=== PATIENT | female | born 1985 | race Two or more races ===

== ENCOUNTER → 2017-06-11 07:43 | Day surgery (SDC) | payer OTHER ==
[~2017-06-11 07:43] MED LIST: Atracurium* 10 MG/ML 10 ML VIAL ONE; Buffered Lidocaine 0.9% SYRIN* 5 ML/SYR SYRINGE INTRADERM ONE; Buffered Lidocaine 0.9% SYRIN* 5 ML/SYR SYRINGE ONE; DiMENhydriNATE IV* 50 MG/ML VIAL IV PUSH PRN; Famotidine IV* 10 MG/ML 2 ML (20 mg) IV ONE; Famotidine IV* 10 MG/ML 2 ML (20 mg) ONE; KETAMINE HCL* 50 MG/ML 10 ML VIAL ONE; Midazolam* 1 MG/ML 10 ML VIAL (10 MG) ONE; Morphine INJ* 2 MG/ML 1 ML CARPUJECT IV PRN; PROCHLORPERAZINE INJ 5 MG/ML 2 ML VIAL IV PRN; Scopolamine 1.5 mg* PATCH TRANSDERM PRN; Scopolamine PATCH Remove* 1 NOTE MISC PATCH OFF ONE; ceFAZolin 2 GM PREMIX (*) 2 GM/50 ML BAG IVPB ONE; fentaNYL* 50 MCG/ML 2 ML VIAL (100 MCG VIAL) IV PRN; fentaNYL* 50 MCG/ML 2 ML VIAL (100 MCG VIAL) ONE; oxyCODONE/Acetamin 5/325 MG* TAB PO PRN
[2017-06-11 08:22] VITALS: BP 125/62
--- NOTE | 2017-06-11 08:27 | PN ---
Progress Note - Progress Note Date of Service: 06/11/17 Note: Ms. Titus presented to Same Day Surgery reporting that she feels ill and is coughing. Vital Signs 06/11/17 08:02 Temperature 98.8 F Pulse Rate 81 Respiratory 16 Rate Blood Pressure 125/62 (mmHg) O2 Sat by Pulse 98 Oximetry Exam shows that she has enlarged tonsils, lungs have slightly diminished BS bilaterally, and she appears ill. Will cancel surgery for today and try to reschedule next week. Moiz
== END | disposition home or self-care (01) ==
LOC: OR 07:43
PROVIDERS: ATTEND Surgery
DX: K82.4 Cholesterolosis of gallbladder (principal); Z53.09 Procedure and treatment not carried out because of other contraindication; R05 Cough; J35.1 Hypertrophy of tonsils
CPT/HCPCS: 81025; J0690; J2250; J3010

== ENCOUNTER 2017-06-18 07:52 | Inpatient (IN) | payer OTHER ==
[~2017-06-18 07:52] MED LIST changes: +Acetaminophen TAB* 325 MG PO ONE; -Atracurium* 10 MG/ML 10 ML VIAL ONE; -Buffered Lidocaine 0.9% SYRIN* 5 ML/SYR SYRINGE ONE; +Dexamethasone IV* 4 MG/ML 1 ML (4 MG) IV SLOW PU ONE; -DiMENhydriNATE IV* 50 MG/ML VIAL IV PUSH PRN; -Famotidine IV* 10 MG/ML 2 ML (20 mg) ONE; -KETAMINE HCL* 50 MG/ML 10 ML VIAL ONE; -Midazolam* 1 MG/ML 10 ML VIAL (10 MG) ONE; -Morphine INJ* 2 MG/ML 1 ML CARPUJECT IV PRN; -PROCHLORPERAZINE INJ 5 MG/ML 2 ML VIAL IV PRN; -Scopolamine 1.5 mg* PATCH TRANSDERM PRN; -Scopolamine PATCH Remove* 1 NOTE MISC PATCH OFF ONE; -ceFAZolin 2 GM PREMIX (*) 2 GM/50 ML BAG IVPB ONE; -fentaNYL* 50 MCG/ML 2 ML VIAL (100 MCG VIAL) IV PRN; -fentaNYL* 50 MCG/ML 2 ML VIAL (100 MCG VIAL) ONE; -oxyCODONE/Acetamin 5/325 MG* TAB PO PRN
[2017-06-18] MEDS ORDERED: Acetaminophen TAB* 325 MG ONE (08:07)
[2017-06-18] MEDS ORDERED: Dexamethasone IV* 4 MG/ML 1 ML (4 MG) ONE (08:07)
[2017-06-18] MEDS ORDERED: Famotidine IV* 10 MG/ML 2 ML (20 mg) ONE (08:07)
[2017-06-18] MEDS ORDERED: ceFAZolin 2 GM PREMIX (*) 2 GM/50 ML BAG IVPB ONE ×2 (08:08→16:13)
[2017-06-18] MEDS ORDERED: Buffered Lidocaine 0.9% SYRIN* 5 ML/SYR SYRINGE ONE (08:08)
[2017-06-18] MEDS ORDERED: Propofol* 10 MG/ML 20 ML BTL IV PUSH ONE ×2 (08:13→17:16)
[2017-06-18] MEDS ORDERED: Midazolam* 1 MG/ML 2 ML VIAL (2 MG) ONE ×2 (08:13→16:04)
[2017-06-18] MEDS ORDERED: fentaNYL* 50 MCG/ML 2 ML VIAL (100 MCG VIAL) ONE ×5 (08:13→16:21)
[2017-06-18] MEDS ORDERED: Lidocaine 2% PF * 5 ML VIAL ONE (08:13)
[2017-06-18] MEDS ORDERED: Rocuronium* 10 MG/ML VIAL ONE (08:14)
[2017-06-18] MEDS ORDERED: Bupivacaine 0.5% SDV PF* 10-30ML VIAL ONE (08:16)
[2017-06-18] MEDS ORDERED: Bupivacaine 0.25% SDV* 30 ML ONE ×2 (10:09→16:04)
[2017-06-18] MEDS ORDERED: Ondansetron INJ* 2 MG/ML VIAL ONE (10:18)
[2017-06-18] MEDS ORDERED: Ketorolac INJ* 30 MG/ML 1 ML VIAL ONE (10:18)
[2017-06-18] MEDS ORDERED: HYDROmorphone INJ* 1 MG/ML CARPUJECT SYRINGE IV PRN (10:24)
[2017-06-18] MEDS ORDERED: Levalbuterol 0.63MG/3ML NEB* UNIT OF USE INH PRN (10:24)
[2017-06-18] MEDS ORDERED: Glycopyrrolate IV* 0.2 MG/ML 1 ML VIAL ONE ×3 (10:24→17:20)
[2017-06-18] MEDS ORDERED: PROCHLORPERAZINE INJ 5 MG/ML 2 ML VIAL IV PRN (10:24)
[2017-06-18] MEDS ORDERED: DiMENhydriNATE IV* 50 MG/ML VIAL IV PUSH PRN (10:24)
[2017-06-18] MEDS ORDERED: Ibuprofen TAB* 600 MG PO PRN (10:24)
[2017-06-18] MEDS ORDERED: Neostigmine Methylsulfate* 2 MG/2 ML SYRINGE ONE ×3 (10:24→17:20)
[2017-06-18] MEDS ORDERED: HYDROcodone/ACETAMIN 5-325 MG* 1 TAB PO PRN (10:24)
[2017-06-18] MEDS ORDERED: Ondansetron INJ* 2 MG/ML VIAL IV PRN (10:24)
[2017-06-18] MEDS ORDERED: Sugammadex * 200 MG/2 ML VIAL IV PUSH ONE (10:54)
[2017-06-18] MEDS ORDERED: Sugammadex * 500 MG/5 ML VIAL IV PUSH ONE (10:54)
[2017-06-18] MEDS: fentaNYL* 50 MCG/ML 2 ML VIAL (100 MCG VIAL) IV PRN ×6 (11:15→12:04)
[2017-06-18] MEDS ORDERED: Levalbuterol 0.63MG/3ML NEB* UNIT OF USE INH ONE (11:16)
[2017-06-18] MEDS ORDERED: HYDROmorphone INJ* 1 MG/ML CARPUJECT SYRINGE ONE ×2 (11:26→17:16)
[2017-06-18] MEDS ORDERED: oxyCODONE/Acetamin 5/325 MG* TAB ONE ×2 (12:00→12:41)
[2017-06-18] MEDS: oxyCODONE/Acetamin 5/325 MG* TAB PO PRN ×2 (12:01→12:43)
[2017-06-18] MEDS ORDERED: oxyCODONE TAB* 5 MG TAB ONE ×2 (12:58→13:26)
[2017-06-18] MEDS: oxyCODONE TAB* 5 MG TAB PO PRN ×2 (12:59→13:27)
[2017-06-18] MEDS ORDERED: EPHEDrine (Pressors)* 50 MG/ML VIAL ONE ×2 (13:51→17:16)
[2017-06-18] MEDS ORDERED: Naloxone* 0.4 MG/ML 1 ML VIAL ONE (13:53)
[2017-06-18] MEDS ORDERED: Hetastarch in NS* 500 ML IV ONE (15:59)
[2017-06-18] MEDS ORDERED: Atracurium* 10 MG/ML 10 ML VIAL ONE (16:04)
[2017-06-18] MEDS ORDERED: KETAMINE HCL* 50 MG/ML 10 ML VIAL ONE (16:04)
[2017-06-18 16:16] LABS: Hematocrit 32 % (35-47); Hemoglobin 11.1 g/dl (12.0-16.0); Mean Corpuscular HGB Conc 34 g/dl (31-36); Mean Corpuscular Hemoglobin 29 pg (27-31); Mean Corpuscular Volume 85 fL (80-97); Mean Platelet Volume 8 um3 (7.4-10.4); Platelet Count 335 10^3/ul (150-450); Red Blood Count 3.82 10^6/ul (4.0-5.4); Red Cell Distribution Width 13 % (10.5-15); White Blood Count 15.5 10^3/ul (3.5-10.8)
--- NOTE | 2017-06-18 16:19 | RAD ---
INDICATION: Short of breath COMPARISON: January 19, 2016 TECHNIQUE: An AP portable view obtained at 1602 hours is submitted. Examination is apical lordotic in positioning FINDINGS: Bones/Soft Tissues: There are no acute bony findings. Cardiomediastinal: The cardiomediastinal silhouette is normal. Lungs: There are no infiltrates. Pleura: There are no pleural effusions. Other: None IMPRESSION: NO ACTIVE DISEASE.
[2017-06-18 16:24] LABS: INR 1.09 (0.77-1.02)
[2017-06-18] MEDS ORDERED: Succinylcholine* 20 MG/ML 10 ML VIAL ONE (17:16)
[2017-06-18 17:20] LABS: Hematocrit 24 % (35-47); Mean Corpuscular HGB Conc 34 g/dl (31-36); Mean Corpuscular Hemoglobin 29 pg (27-31); Mean Corpuscular Volume 87 fL (80-97); Mean Platelet Volume 8 um3 (7.4-10.4); Platelet Count 210 10^3/ul (150-450); Red Blood Count 2.71 10^6/ul (4.0-5.4); Red Cell Distribution Width 13 % (10.5-15); White Blood Count 13.3 10^3/ul (3.5-10.8)
[2017-06-18] MEDS ORDERED: HYDROmorphone INJ* 1 MG/ML CARPUJECT SYRINGE IV SLOW PU PRN ×2 (17:55)
[2017-06-18 18:03] LABS: INR 1.03 (0.77-1.02)
[2017-06-18] MEDS ORDERED: KCL 20 MEQ/100 ML IVPREMIX* 20 MEQ/100 ML BAG IV SCH (19:00)
[2017-06-18] MEDS: KCL premix 10MEQ/50 ML x 3 RUNS IV SCH ×2 (19:45→23:23)
[2017-06-18 21:05] LABS: ABS Basophils 0 10^3/ul (0-0.2); ABS Eosinophils 0 10^3/ul (0-0.6); ABS Lymphocytes 0.5 10^3/ul (1.0-4.8); ABS Monocytes 0.5 10^3/ul (0-0.8); ABS Neutrophils 11.4 10^3/ul (1.5-7.7); ABS Nucleated RBC 0 10^3/ul; Eosinophil % 0 % (0-6); Hematocrit 27 % (35-47); Hemoglobin 8.9 g/dl (12.0-16.0); Lymphocyte % 4.4 % (25-47); Mean Corpuscular HGB Conc 34 g/dl (31-36); Mean Corpuscular Hemoglobin 29 pg (27-31); Mean Corpuscular Volume 87 fL (80-97); Mean Platelet Volume 8 um3 (7.4-10.4); Nucleated Red Blood Cells % 0; Platelet Count 246 10^3/ul (150-450); Red Blood Count 3.07 10^6/ul (4.0-5.4); Red Cell Distribution Width 13 % (10.5-15); White Blood Count 12.4 10^3/ul (3.5-10.8)
--- NOTE | 2017-06-18 21:37 | OP ---
CC: [facility]; Dr. Margaret Stoddard OPERATIVE REPORT: DATE OF OPERATION: 06/18/17 DATE OF : 87 SURGEON: Linda Taylor MD SENIOR PORTFOLIO MANAGER: GERARD Gaines and GERARD Jara student PRE-OP DIAGNOSIS: Cholesterolosis of the gallbladder. POST-OP DIAGNOSIS: Cholesterolosis of the gallbladder. OPERATIVE PROCEDURE: Laparoscopic cholecystectomy INDICATIONS: This is patient is a 31-year-old woman who presented with symptomatic cholesterolosis o f the gallbladder, which prompted the plan for surgical intervention. DESCRIPTION OF PROCEDURE: She was brought to the operating room, placed on the OR table in a supine position and given general anesthesia. The abdomen was prepped and draped in the usual sterile fashi on. After infiltrating with local anesthetic, an incision was made in the infraumbilical area. Subc utaneous tissue was divided bluntly. The fascia was grasped and incised and 0-Vicryl stitch was plac ed on the either side of the fascial incision. A trocar was inserted into the abdomen and the abdome n was insufflated. Then under direct visualization, the subxiphoid and two subcostal ports were plac ed after infiltrating with local anesthetic. The gallbladder was visualized, grasped and elevated ov er the liver. Dissection of the peritoneal attachments over the gallbladder was accomplished with a combination of blunt and electrocautery dissection. This exposed the infundibulum and the cystic jaswant t. The cystic duct was cleared, clipped and divided and then the cystic artery was identified, courtney red, clipped and divided. The gallbladder was then taken down from the liver bed using electrocauter y. It was noted that there was some bleeding from the attachments of the gallbladder to the liver. These were controlled with a combination of electrocautery and clips. Once the gallbladder was compl etely removed from the liver bed, it was placed in an Endo Catch bag and withdrawn from the abdomen t hrough the subxiphoid port site. The rest of the abdomen was briefly inspected. No obvious abnormal ities were identified and then the ports were withdrawn under direct visualization. The previously p laced 0-Vicryl was used to close the fascia of the infraumbilical port site and an additional 0-Vicry l was used to close the fascia of the subxiphoid port site. It should be mentioned that this was act ually accomplished prior to withdrawing the ports under direct visualization using the suture pass. The skin was then closed with 4-0 Biosyn for all incisions. Steri-strips were applied. All sponge a nd instruments counts were correct. The patient tolerated the procedure well and was transferred to recovery in a stable condition. [id number]/CPS #: [id number]
--- NOTE | 2017-06-18 23:28 | CONS ---
CC: Dr. Stoddard; Dr. Taylor * CONSULTATION REPORT: DATE OF CONSULT: 06/18/17 PRIMARY CARE PROVIDER: Dr. Stoddard. ATTENDING PHYSICIAN WHILE IN THE HOSPITAL: Vianney Barboza DO (report dictated by Amanda Kahn NP). REQUESTING PHYSICIAN IN CONSULT: Dr. Taylor. REASON FOR MEDICAL CONSULT: Evaluation of hypertension, bradycardia postoperatively. HISTORY OF PRESENT ILLNESS: Mrs. Titus is a 31-year-old female patient who came into the hospital today for an elective laparoscopic cholecystectomy. She had an extensive outpatient workup and was ultimately found to have a biliary colic on imaging and it was noted that on HIDA scan the patient did have an abnormal HIDA scan and it was felt that she would benefit from a laparoscopic cholecystectomy which she underwent today. The patient underwent the procedure. During the operation, there were no reports of excessive bleeding; however, in PACU, it was noted that she did have episodes where she was bradycardic at times in the 30s to 40s and she was hypotensive with this, particularly with any type of movement. So, we were asked to evaluate and consult. She was evaluated in the PACU. Initially, she states that her biggest complaint is that she is having pain in the right upper quadrant going into her back and also having some pain in her epigastric area and she points right to one of her incisions at that area. She denied having any lightheadedness to me initially and denied like she was going to faint or pass out. She denied having any shortness of breath or any chest discomfort. She states that again her biggest complaint is the pain. She denied having any nausea. She states she has not vomited. It was noted that my nursing staff that whenever they tried to move her, she was getting again a low blood pressure and was also noted to be bradycardic. Because of these issues and increased pain, we were asked to evaluate and consult. PAST MEDICAL HISTORY: Significant for: 1. Migraines. 2. Seasonal allergies. 3. Insomnia. PAST SURGICAL HISTORY: She has had vaginal delivery. She has had a D and C and then she had a laparoscopic cholecystectomy today. MEDICATIONS: Preop home meds include: 1. Ibuprofen 600 mg p.o. every 6 hours as needed. 2. Tylenol 650 mg p.o. every 4 hours as needed. 3. [place] 1 tablet every 4 hours as needed. ALLERGIES TO MEDICATIONS: Include no known drug allergies. FAMILY HISTORY: Her father had a stroke. Mother's history is reviewed and especially is noncontributory for having any strokes, cancers, or heart attacks. SOCIAL HISTORY: She does not smoke. She does not drink. Her surrogate decision maker is her brother. REVIEW OF SYSTEMS: There is no documented fever. She denied having any significant weight change. There was no double vision. She denies having any ear discharge. There was no rhinorrhea. No sore throat. No thyroid enlargement. She denied having any chest pain. She did admit to abdominal pain from HPI. There was no nausea. There was no vomiting. She denied any dysuria. She denied having any loss of consciousness. No pruritus and no skin ulcerations. Review of 14 systems completed. All others negative. PHYSICAL EXAMINATION: Blood pressure now is 114/64, the pulse is 62, respirations 20, O2 sat of 100%. After I initially evaluated her and I came to sit down on the computer to type in orders, her blood pressure did drop into the 60s and she became bradycardic in the 60s, but she did appear to be more pale according to Anesthesia and the patient was subjectively reporting not feeling well. At that point, she was evaluated by Dr. Taylor and they were actually taking her back to the OR. Generally at this time, she is a 31-year- old female patient. She does appear to be pale. She does not appear to be tachypneic. She does appear to be in a significant amount of pain. She appears to be well nourished, well developed. HEENT: Head is atraumatic. Eyes : EOMs intact. Sclerae anicteric, not pale. Neck: Supple. Throat: Oral mucosa appears to be dry. No oropharyngeal erythema. Heart: Sounds S1, S2. Regular rate and rhythm. She has no murmurs, rubs, or gallops. Lungs: Clear to auscultation. No wheezes, rales, or rhonchi. Abdomen: Soft, did not appear to be overly distended. She was tender mostly at the incision sites at this point. Extremities: Pulses were 2+ throughout. She is moving all 4 extremities. Neurologically, she does awaken, she is alert, and she is oriented x3. Her skin is intact with the exception she does have incisions noted to her abdomen which were clean, dry, and intact. LABORATORY DATA/DIAGNOSTIC STUDIES: Labs preop, these are from January, WBC 5.2, RBC 4.49, hemoglobin 12.8, hematocrit 39, platelet count of 301. INR 1.16. Sodium is 138, potassium 3.7, chloride 105, bicarb 28, BUN 13, creatinine of 0.72, and her glucose was 132. She had an EKG obtained today, which showed sinus bradycardia, rate of 57, no ST elevations or T wave inversions. She did have a chest x-ray obtained that is pending. Old medical records were reviewed. ASSESSMENT AND PLAN: Mrs. Titus is a 31-year-old female patient that again we initially were asked to evaluate for bradycardia and hypotension. On initial evaluation, her blood pressure was in the one-teens and her heart rate was in the 70s. She was complaining of pain; however, it was noted shortly thereafter that she did drop her blood pressure again into the 60s systolic. She appeared to be more pale. She was still complaining subjectively of feeling flushed and feeling faint. Dr. Taylor was brought to the bedside as well as Dr. Zaman who felt that at this point that she would come back to the OR to make sure there was not any other pathology going on that could be contributing to her symptoms. CBC ordered at this point and BMP, type and screen and an INR. My recommendations at this point are: 1. Status post laparoscopic cholecystectomy: We will defer the management of this to Dr. Taylor and her team. 2. Hypotension with bradycardia: Again, initially I was concerned that she was vasovagal; however, there may be an underlying bigger process going on here. She certainly may have evidence of possible bleeding that could be contributing to her symptoms. The plan would be to take her back. We will check the CBC, ICU postoperatively, monitor her closely, fluids we will get 2 lines, type and screen and follow labs closely. 3. Migraines: Not an active issue currently. 4. Seasonal allergies: Continue meds as prescribed. 5. Insomnia: Continue supportive care. 5. DVT prophylaxis: Per the primary team. 6. Code status: Full code. 7. Fluid, electrolytes, and nutrition: Per the primary team. 8. Activity: Per the primary team. TIME SPENT: Time spent on the consult was 70 minutes, greater than half the time was spent [id number] with the patient obtaining history and physical, the other half time was spent going over our plan of care with the patient and implementing plan of care. I did discuss the plan of care with my attending, Dr. Barboza; she is in agreement. AMANDA KAHN, ECONOMICS INSTRUCTOR [id number]/CPS #: [id number] JUDY
[2017-06-18] MEDS: Acetaminophen TAB* 325 MG PO PRN (23:40)
[2017-06-18] MEDS: Ondansetron INJ* 2 MG/ML VIAL IV PRN (23:40)
--- NOTE | 2017-06-19 02:25 | OP ---
CC: [facility]; Dr. Margaret Stoddard OPERATIVE REPORT: DATE OF OPERATION: 06/18/17 DATE OF : 87 SURGEON: Linda Taylor MD LOGISTICS OPERATIONS MANAGER: GERARD Quan and PA student, Marek. PRE-OP DIAGNOSIS: Hemodynamic instability. POST-OP DIAGNOSIS: Intraabdominal hematoma. OPERATIVE PROCEDURE: Laparoscopy and evacuation of hematoma. INDICATIONS: Ms. Titus is a 31-year-old female, who was recently status post laparoscopic cholecystecto my and while in recovery room, she was noted to have some decreased blood pressure and increased pain . In the process of evaluating this, medicine was called to consult and while they were consulting, she dropped her pressure even further. At this point, I was called and noted that she was rather pal e, made the decision to return to the operating room. DESCRIPTION OF PROCEDURE: She was brought to the operating room, placed on the OR table in a supine position and given general anesthesia. The abdomen was prepped and draped in the usual sterile fashi on. After infiltrating with local anesthetic, a scalpel was used to cut the stitches from the previo us incision at the infraumbilical site and a trocar was inserted. The abdomen was insufflated and th en under direct visualization, the incisions at the subxiphoid and two right subcostal port sites wer e opened and ports were inserted under direct visualization after infiltrating with local anesthetic. There was noted severe moderate amount of hematoma in the region of the liver bed and some liquid b lood and fluid over the liver and moderate hematoma on the anterior surface of the bowel. The abdome n was irrigated with saline and the irrigation and the clots were evacuated and then copious irrigati on was utilized to try and localize any bleeding source. The gallbladder fossa was inspected and the re was no active bleeding observed from there. There did not appear to be any bleeding from cystic a rtery and no leakage of blood from any other source that could be identified. The abdomen was copiou sly irrigated with fluid and all the irrigation fluid was evacuated and this was repeated until it ap peared that the irrigation fluid was running fairly clear and that the blood had been washed out from all surfaces where it could be visualized including in the pelvis and over the right side of the meri er. The abdomen was observed very carefully for ongoing bleeding and then was visualized. A piece o f Surgicel was placed in the gallbladder fossa and the ports were withdrawn under direct visualizatio n. A 0 Vicryl was used to close the fascia of the infraumbilical port site and 4-0 Monocryl was used to close the skin of all incisions. Steri-Strips were applied. All sponge and instruments counts w ere correct. The patient tolerated the procedure well and was transferred to Recovery in a stable co ndition. [id number] #: [id number]
[2017-06-19 02:46] LABS: Hematocrit 24 % (35-47); Hemoglobin 8.2 g/dl (12.0-16.0)
[2017-06-19] MEDS: KCL premix 10MEQ/50 ML x 3 RUNS IV SCH (03:06)
[2017-06-19] MEDS: oxyCODONE/Acetamin 5/325 MG* TAB PO PRN ×3 (03:44→23:17)
[2017-06-19] MEDS ORDERED: KCL premix 10MEQ/50 ML x 1 TIME IV ONE (04:00)
[2017-06-19 06:13] LABS: ABS Basophils 0.1 10^3/ul (0-0.2); ABS Eosinophils 0 10^3/ul (0-0.6); ABS Lymphocytes 1.4 10^3/ul (1.0-4.8); ABS Monocytes 0.6 10^3/ul (0-0.8); ABS Neutrophils 6.2 10^3/ul (1.5-7.7); ABS Nucleated RBC 0.05 10^3/ul; Eosinophil % 0.1 % (0-6); Hematocrit 23 % (35-47); Hemoglobin 7.9 g/dl (12.0-16.0); Lymphocyte % 17.1 % (25-47); Mean Corpuscular HGB Conc 35 g/dl (31-36); Mean Corpuscular Hemoglobin 30 pg (27-31); Mean Corpuscular Volume 86 fL (80-97); Mean Platelet Volume 8 um3 (7.4-10.4); Nucleated Red Blood Cells % 0.6; Platelet Count 231 10^3/ul (150-450); Red Blood Count 2.64 10^6/ul (4.0-5.4); Red Cell Distribution Width 13 % (10.5-15); White Blood Count 8.3 10^3/ul (3.5-10.8)
[2017-06-19 06:22] LABS: EGFR Non-African American 151.9 (>60)
--- NOTE | 2017-06-19 07:43 | PN ---
Progress Note - Progress Note Date of Service: 06/19/17 Note: Surgery Ms. Titus says she feels better than before her return to OR yesterday. She does have some nausea, but wants to get up and walk today. Vital Signs 06/18/17 06/18/17 06/18/17 08:16 11:15 11:20 Temperature 98.4 F 98.1 F Pulse Rate 66 68 Respiratory 16 16 16 Rate Blood Pressure 106/65 134/78 (mmHg) O2 Sat by Pulse 99 100 Oximetry 06/18/17 06/18/17 06/18/17 11:23 11:25 11:30 Temperature Pulse Rate 64 68 Respiratory 14 18 16 Rate Blood Pressure 110/92 (mmHg) O2 Sat by Pulse 100 100 Oximetry 06/18/17 06/18/17 06/18/17 11:34 11:35 11:38 Temperature Pulse Rate 67 Respiratory 14 16 16 Rate Blood Pressure 124/81 (mmHg) O2 Sat by Pulse 100 Oximetry 06/18/17 06/18/17 06/18/17 11:45 12:00 12:01 Temperature Pulse Rate 65 57 Respiratory 16 16 17 Rate Blood Pressure 114/75 98/55 (mmHg) O2 Sat by Pulse 99 100 Oximetry 06/18/17 06/18/17 06/18/17 12:04 12:15 12:30 Temperature 98.2 F Pulse Rate 60 64 Respiratory 17 18 11 Rate Blood Pressure 114/68 106/64 (mmHg) O2 Sat by Pulse 100 100 Oximetry 06/18/17 06/18/17 06/18/17 12:43 12:45 13:50 Temperature Pulse Rate 58 41 Respiratory 18 19 20 Rate Blood Pressure 108/60 (mmHg) O2 Sat by Pulse 100 Oximetry 06/18/17 06/18/17 06/18/17 14:15 14:30 14:45 Temperature 98.1 F Pulse Rate 62 61 63 Respiratory 20 20 17 Rate Blood Pressure 114/64 114/64 112/62 (mmHg) O2 Sat by Pulse 100 100 100 Oximetry 06/18/17 06/18/17 06/18/17 15:00 15:15 15:30 Temperature Pulse Rate 65 63 71 Respiratory 23 16 24 Rate Blood Pressure 100/63 98/56 104/66 (mmHg) O2 Sat by Pulse 100 99 99 Oximetry 06/18/17 06/18/17 06/18/17 15:45 15:48 15:55 Temperature Pulse Rate 68 59 59 Respiratory 19 20 20 Rate Blood Pressure 68/32 88/52 (mmHg) O2 Sat by Pulse 100 100 100 Oximetry 06/18/17 06/18/17 06/18/17 16:00 16:15 17:38 Temperature 97.7 F Pulse Rate 60 67 130 Respiratory 24 22 18 Rate Blood Pressure 118/69 120/70 117/65 (mmHg) O2 Sat by Pulse 100 100 100 Oximetry 06/18/17 06/18/17 06/18/17 18:29 18:31 18:32 Temperature 99.6 F Pulse Rate 64 63 Respiratory 25 15 16 Rate Blood Pressure 110/74 110/74 (mmHg) O2 Sat by Pulse 99 99 Oximetry 06/18/17 06/18/17 06/18/17 18:45 19:00 19:15 Temperature Pulse Rate 62 60 61 Respiratory 15 15 16 Rate Blood Pressure 105/71 109/73 109/73 (mmHg) O2 Sat by Pulse 100 100 100 Oximetry 06/18/17 06/18/17 06/18/17 19:30 19:45 20:00 Temperature 99.6 F Pulse Rate 60 60 78 Respiratory 17 18 24 Rate Blood Pressure 106/71 110/67 124/84 (mmHg) O2 Sat by Pulse 100 100 100 Oximetry 06/18/17 06/18/17 06/18/17 20:15 20:30 21:00 Temperature Pulse Rate 64 64 60 Respiratory 20 24 16 Rate Blood Pressure 105/66 111/66 105/64 (mmHg) O2 Sat by Pulse 100 100 100 Oximetry 06/18/17 06/18/17 06/18/17 21:15 21:30 21:45 Temperature Pulse Rate 68 67 66 Respiratory 18 15 17 Rate Blood Pressure 101/65 99/63 97/57 (mmHg) O2 Sat by Pulse 95 94 95 Oximetry 06/18/17 06/18/17 06/18/17 22:00 22:15 22:30 Temperature Pulse Rate 73 65 70 Respiratory 13 15 15 Rate Blood Pressure 94/54 93/55 94/58 (mmHg) O2 Sat by Pulse 94 95 95 Oximetry 06/18/17 06/18/17 06/18/17 22:45 23:00 23:15 Temperature Pulse Rate 68 69 80 Respiratory 12 16 23 Rate Blood Pressure 98/56 90/52 93/57 (mmHg) O2 Sat by Pulse 95 96 98 Oximetry 06/18/17 06/19/17 06/19/17 23:58 00:00 00:01 Temperature 99.6 F Pulse Rate 69 Respiratory 18 18 Rate Blood Pressure 99/62 (mmHg) O2 Sat by Pulse 95 Oximetry 06/19/17 06/19/17 06/19/17 00:02 00:50 01:00 Temperature Pulse Rate 65 76 69 Respiratory 19 15 18 Rate Blood Pressure 91/54 93/54 (mmHg) O2 Sat by Pulse 96 95 92 Oximetry 06/19/17 06/19/17 06/19/17 01:01 02:00 02:01 Temperature Pulse Rate 72 70 68 Respiratory 14 23 16 Rate Blood Pressure 92/55 (mmHg) O2 Sat by Pulse 95 94 96 Oximetry 06/19/17 06/19/17 06/19/17 02:25 03:00 03:44 Temperature Pulse Rate 69 65 Respiratory 19 17 26 Rate Blood Pressure 91/54 88/58 (mmHg) O2 Sat by Pulse 96 96 Oximetry 06/19/17 06/19/17 06/19/17 04:00 05:00 05:41 Temperature Pulse Rate 68 66 71 Respiratory 21 16 15 Rate Blood Pressure 90/57 85/53 86/50 (mmHg) O2 Sat by Pulse 96 94 95 Oximetry 06/19/17 06:00 Temperature Pulse Rate 65 Respiratory 18 Rate Blood Pressure 92/60 (mmHg) O2 Sat by Pulse 97 Oximetry Abd: distended, good BS, mildly tender near incisions. Intake & Output Intake & Output 06/18/17 06/19/17 06/19/17 22:59 06:59 14:59 Intake Total 5850 391 Output Total 4200 400 Balance 1650 -9 Weight 154 lb 5.177 oz 146 lb 13.246 oz Intake: IV Fluids 5800 87 LR 5800 37 IVPB 50 254 LR 50 254 Oral 50 Output: [place] 3200 400 Estimated Blood Loss 1000 Laboratory Results - last 24 hr 06/18/17 06/18/17 06/18/17 15:48 15:48 15:48 WBC 15.5 H RBC 3.82 L Hgb 11.1 L Hct 32 L MCV 85 MCH 29 MCHC 34 RDW 13 Plt Count 335 MPV 8 Neut % (Auto) Lymph % (Auto) Gregg % (Auto) Eos % (Auto) Baso % (Auto) Absolute Neuts (auto) Absolute Lymphs (auto) Absolute Monos (auto) Absolute Eos (auto) Absolute Basos (auto) Absolute Nucleated RBC Nucleated RBC % INR (Anticoag Therapy) 1.09 H APTT Sodium 136 Potassium 3.3 L Chloride 104 Carbon Dioxide 24 Anion Gap 8 BUN 8 Creatinine 0.64 Est GFR ( Amer) 140.1 Est GFR (Non-Af Amer) 109.0 BUN/Creatinine Ratio 12.5 Glucose 142 H Calcium 8.5 L Total Bilirubin 0.30 AST 35 ALT 22 Alkaline Phosphatase 43 Total Protein 6.6 Albumin 3.4 Globulin 3.2 Albumin/Globulin Ratio 1.1 Blood Type Antibody Screen 06/18/17 06/18/17 06/18/17 16:05 17:09 17:09 WBC 13.3 H RBC 2.71 L Hgb 8.0 L Hct 24 L MCV 87 MCH 29 MCHC 34 RDW 13 Plt Count 210 MPV 8 Neut % (Auto) Lymph % (Auto) Gregg % (Auto) Eos % (Auto) Baso % (Auto) Absolute Neuts (auto) Absolute Lymphs (auto) Absolute Monos (auto) Absolute Eos (auto) Absolute Basos (auto) Absolute Nucleated RBC Nucleated RBC % INR (Anticoag Therapy) 1.03 H APTT 38.2 H Sodium Potassium Chloride Carbon Dioxide Anion Gap BUN Creatinine Est GFR ( Amer) Est GFR (Non-Af Amer) BUN/Creatinine Ratio Glucose Calcium Total Bilirubin AST ALT Alkaline Phosphatase Total Protein Albumin Globulin Albumin/Globulin Ratio Blood Type B Positive Antibody Screen Negative 06/18/17 06/19/17 06/19/17 20:50 02:40 05:56 WBC 12.4 H RBC 3.07 L Hgb 8.9 L 8.2 L Hct 27 L 24 L MCV 87 MCH 29 MCHC 34 RDW 13 Plt Count 246 MPV 8 Neut % (Auto) 91.5 H Lymph % (Auto) 4.4 L Gregg % (Auto) 3.8 Eos % (Auto) 0 Baso % (Auto) 0.3 Absolute Neuts (auto) 11.4 H Absolute Lymphs (auto) 0.5 L Absolute Monos (auto) 0.5 Absolute Eos (auto) 0 Absolute Basos (auto) 0 Absolute Nucleated RBC 0 Nucleated RBC % 0 INR (Anticoag Therapy) APTT Sodium 135 Potassium 3.6 Chloride 106 Carbon Dioxide 25 Anion Gap 4 BUN 6 Creatinine 0.48 L Est GFR ( Amer) 195.3 Est GFR (Non-Af Amer) 151.9 BUN/Creatinine Ratio 12.5 Glucose 86 Calcium 7.6 L Total Bilirubin AST ALT Alkaline Phosphatase Total Protein Albumin Globulin Albumin/Globulin Ratio Blood Type Antibody Screen 06/19/17 05:56 WBC 8.3 RBC 2.64 L Hgb 7.9 L Hct 23 L MCV 86 MCH 30 MCHC 35 RDW 13 Plt Count 231 MPV 8 Neut % (Auto) 75.2 Lymph % (Auto) 17.1 L Gregg % (Auto) 6.8 Eos % (Auto) 0.1 Baso % (Auto) 0.8 Absolute Neuts (auto) 6.2 Absolute Lymphs (auto) 1.4 Absolute Monos (auto) 0.6 Absolute Eos (auto) 0 Absolute Basos (auto) 0.1 Absolute Nucleated RBC 0.05 Nucleated RBC % 0.6 INR (Anticoag Therapy) APTT Sodium Potassium Chloride Carbon Dioxide Anion Gap BUN Creatinine Est GFR ( Amer) Est GFR (Non-Af Amer) BUN/Creatinine Ratio Glucose Calcium Total Bilirubin AST ALT Alkaline Phosphatase Total Protein Albumin Globulin Albumin/Globulin Ratio Blood Type Antibody Screen A/P: POD#1 s/p lap choley and then return to OR for bleeding. She has been a little hypotensive while sleeping, Hgb is low at 7.9, but relatively stable since OR; will continue to check labs and monitor BP. Will have low threshold for return to OR for further drops in Hgb or persistent low BP. [facility]
[2017-06-19 08:05] LABS: INR 1.27 (0.77-1.02)
--- NOTE | 2017-06-19 09:58 | PN ---
Subjective Date of Service: 06/19/17 Interval History: pt c/o diffuse post op abd pain, no flatus or BM yet. tolerating clears Objective Active Medications: Acetaminophen (Tylenol Tab*) 650 mg PO Q4H PRN PRN Reason: mild pain Last Admin: 06/18/17 23:40 Dose: 650 mg Hydromorphone HCl (Dilaudid Injic*) 0.5 mg IV SLOW PU Q4H PRN PRN Reason: PAIN Hydromorphone HCl (Dilaudid Injic*) 1 mg IV SLOW PU Q4H PRN PRN Reason: more severe pain Lactated Ringer's (Lactated Ringers 1000 Ml Bag*) 1,000 mls @ 100 mls/hr IV PER RATE ABENA Levalbuterol HCl (Xopenex 0.63mg/3ml Neb*) 0.63 mg INH ONCE PRN PRN Reason: SOB/WHEEZING Stop: 06/19/17 10:23 Ondansetron HCl (Zofran Inj*) 4 mg IV Q6H PRN PRN Reason: NAUSEA Last Admin: 06/18/17 23:40 Dose: 4 mg Oxycodone/Acetaminophen (Percocet 5/325 Tab*) 1 tab PO Q4H PRN PRN Reason: moderate pain Last Admin: 06/19/17 03:44 Dose: 1 tab Oxycodone/Acetaminophen (Percocet 5/325 Tab*) 2 tab PO Q4H PRN PRN Reason: moderately severe pain Vital Signs - 8 hr 06/19/17 06/19/17 06/19/17 02:00 02:01 02:25 Temperature Pulse Rate 70 68 69 Respiratory 23 16 19 Rate Blood Pressure 92/55 91/54 (mmHg) O2 Sat by Pulse 94 96 96 Oximetry 06/19/17 06/19/17 06/19/17 03:00 03:44 04:00 Temperature Pulse Rate 65 68 Respiratory 17 26 21 Rate Blood Pressure 88/58 90/57 (mmHg) O2 Sat by Pulse 96 96 Oximetry 06/19/17 06/19/17 06/19/17 05:00 05:41 06:00 Temperature Pulse Rate 66 71 65 Respiratory 16 15 18 Rate Blood Pressure 85/53 86/50 92/60 (mmHg) O2 Sat by Pulse 94 95 97 Oximetry 12/06/19/17 06/19/17 07:00 07:50 08:00 Temperature 99.9 F Pulse Rate 65 66 Respiratory 15 14 Rate Blood Pressure 89/62 80/52 (mmHg) O2 Sat by Pulse 96 95 Oximetry 06/19/17 06/19/17 08:02 09:00 Temperature Pulse Rate 66 65 Respiratory 16 13 Rate Blood Pressure 85/54 94/51 (mmHg) O2 Sat by Pulse 95 96 Oximetry Oxygen Devices in Use Now: None Appearance: 31 yo f in nAD, aAOx3 Eyes: No Scleral Icterus, PERRLA Ears/Nose/Mouth/Throat: NL Teeth, Lips, Gums, Mucous Membranes Moist Neck: NL Appearance and Movements; NL JVP, Trachea Midline Respiratory: Symmetrical Chest Expansion and Respiratory Effort, Clear to Auscultation Cardiovascular: NL Sounds; No Murmurs; No JVD, RRR Abdominal: - - mild diffuse tenderness, no rebound, no guarding, BS+, post op incisions covered with steri-stripa Extremities: No Edema, No Clubbing, Cyanosis Skin: No Nodules or Sclerosis, - - see above Neurological: Alert and Oriented x 3, NL Muscle Strength and Tone Result Diagrams: 06/19/17 05:56 06/19/17 05:56 Microbiology and Other Data: Microbiology 06/18/17 21:16 Nasal Screen MRSA (PCR)(LUIS) - Final Nasal Mrsa Negative 06/18/17 18:20 Nasal Screen MRSA (PCR)(LUIS) - Final Nasal Mrsa Negative Assess/Plan/Problems-Billing Assessment: 31 yo f with h/o HTN presents for laparoscopic cholecystectomy and suffered from post op hemorrhagic shock, [facility] and intraabd hematoma was washed out by Dr. Taylor. - Patient Problems (1) Hemorrhagic shock Comment: resuscitated with IVF. Hb down to 7.9, now hemodynamically stable on clears by surgery (2) Anemia Comment: due to acute intraop hemorrhage H&H will be checked in aM (3) DVT prophylaxis Comment: SCD's
[2017-06-19] MEDS: Ondansetron INJ* 2 MG/ML VIAL IV PRN (16:41)
[2017-06-19] MEDS: Acetaminophen TAB* 325 MG PO PRN (20:18)
[2017-06-19] MEDS: ZOSYN 3.375 GM Q8H per EXTENDED INFUSION IVPB SCH ×2 (21:13)
[2017-06-19 21:32] LABS: ABS Basophils 0 10^3/ul (0-0.2); ABS Eosinophils 0 10^3/ul (0-0.6); ABS Lymphocytes 1.9 10^3/ul (1.0-4.8); ABS Monocytes 0.5 10^3/ul (0-0.8); ABS Nucleated RBC 0 10^3/ul; Eosinophil % 0.5 % (0-6); Hematocrit 27 % (35-47); Hemoglobin 9.1 g/dl (12.0-16.0); Lymphocyte % 22.1 % (25-47); Mean Corpuscular HGB Conc 34 g/dl (31-36); Mean Corpuscular Hemoglobin 30 pg (27-31); Mean Corpuscular Volume 87 fL (80-97); Mean Platelet Volume 8 um3 (7.4-10.4); Nucleated Red Blood Cells % 0; Platelet Count 241 10^3/ul (150-450); Red Blood Count 3.07 10^6/ul (4.0-5.4); Red Cell Distribution Width 13 % (10.5-15); White Blood Count 8.4 10^3/ul (3.5-10.8)
[2017-06-20] MEDS: oxyCODONE/Acetamin 5/325 MG* TAB PO PRN ×5 (03:41→23:42)
[2017-06-20 05:57] LABS: INR 1.33 (0.77-1.02)
[2017-06-20 05:59] LABS: EGFR Non-African American 182.2 (>60)
[2017-06-20] MEDS: ZOSYN 3.375 GM Q8H per EXTENDED INFUSION IVPB SCH ×2 (06:09)
[2017-06-20] MEDS ORDERED: Magnesium Sulfate IV* 3 GM in NS 0.9% 100 ML* 100 ML IVPB ONE (08:44)
[2017-06-20] MEDS ORDERED: KCL 20 MEQ/100 ML IVPREMIX* 20 MEQ/100 ML BAG IV SCH (09:00)
[2017-06-20] MEDS ORDERED: Magnesium Sulfate 1 GM IV* 1 GM/100 ML BAG IV ONE (09:00)
[2017-06-20] MEDS: KCL premix 10MEQ/50 ML x 4 RUNS IV SCH ×4 (09:26→15:50)
[2017-06-20] MEDS ORDERED: Magnesium Sulfate 2 GM IV IVPB ONE (10:00)
--- NOTE | 2017-06-20 10:25 | PN ---
Progress Note - Progress Note Date of Service: 06/20/17 SOAP: Subjective: Reports abdominal pain and Nausea. Wants to drink. Had temp 102 last night and was started on iv abx. Objective: Vital Signs Temp 99.8 F 06/20/17 08:00 Pulse 73 06/20/17 09:00 Resp 16 06/20/17 09:39 BP 101/65 06/20/17 09:00 Pulse Ox 95 06/20/17 09:00 Gen: lying in bed; arousable; NAD. lungs: decr BS at bases, no w/r/r abd: incis c/d/i; no erythema; BS+; soft, ND, tender incisions. Intake & Output 06/19/17 06/20/17 06/20/17 18:59 06:59 18:59 Intake Total 0 616 Output Total 900 Balance 0 -284 Weight 143 lb 1.28 oz Intake: IV Fluids 320 LR 320 IVPB 96 LR 96 Oral 0 200 Output: [place] 900 Laboratory Results - last 24 hr 06/19/17 06/19/17 06/20/17 21:06 21:06 05:28 WBC 8.4 RBC 3.07 L Hgb 9.1 L Hct 27 L MCV 87 MCH 30 MCHC 34 RDW 13 Plt Count 241 MPV 8 Neut % (Auto) 71.2 Lymph % (Auto) 22.1 L Rich % (Auto) 5.9 Eos % (Auto) 0.5 Baso % (Auto) 0.3 Absolute Neuts (auto) 6.0 Absolute Lymphs (auto) 1.9 Absolute Monos (auto) 0.5 Absolute Eos (auto) 0 Absolute Basos (auto) 0 Absolute Nucleated RBC 0 Nucleated RBC % 0 INR (Anticoag Therapy) Sodium 133 Potassium 3.3 L Chloride 103 Carbon Dioxide 19 L Anion Gap 11 BUN 6 Creatinine 0.41 L Est GFR ( Amer) 234.3 Est GFR (Non-Af Amer) 182.2 BUN/Creatinine Ratio 14.6 Glucose 54 L Lactic Acid 0.8 Calcium 6.9 L Magnesium 1.3 L 06/20/17 05:28 WBC RBC Hgb Hct MCV MCH MCHC RDW Plt Count MPV Neut % (Auto) Lymph % (Auto) Rich % (Auto) Eos % (Auto) Baso % (Auto) Absolute Neuts (auto) Absolute Lymphs (auto) Absolute Monos (auto) Absolute Eos (auto) Absolute Basos (auto) Absolute Nucleated RBC Nucleated RBC % INR (Anticoag Therapy) 1.33 H Sodium Potassium Chloride Carbon Dioxide Anion Gap BUN Creatinine Est GFR ( Amer) Est GFR (Non-Af Amer) BUN/Creatinine Ratio Glucose Lactic Acid Calcium Magnesium Assessment: POD#2 s/p lap coral and dx lap/return to OR for bleeding HD stable. Fever prob due to atalectasis. Plan: Trxf to [facility]. Adv diet. Pulm toilet ambulate d/c abx given nl WBC.
--- NOTE | 2017-06-20 10:28 | PN ---
Subjective Date of Service: 06/20/17 Interval History: Pt developed fever of 102 last night, started on zosyn C/o continuation of diffuse abd pain, but very nonspecific with quantification of the pain Objective Active Medications: Acetaminophen (Tylenol Tab*) 650 mg PO Q4H PRN PRN Reason: mild pain Last Admin: 06/19/17 20:18 Dose: 650 mg Hydromorphone HCl (Dilaudid Injic*) 0.5 mg IV SLOW PU Q4H PRN PRN Reason: PAIN Hydromorphone HCl (Dilaudid Injic*) 1 mg IV SLOW PU Q4H PRN PRN Reason: more severe pain Last Admin: 06/19/17 16:41 Dose: 1 mg Lactated Ringer's (Lactated Ringers 1000 Ml Bag*) 1,000 mls @ 100 mls/hr IV PER RATE ABENA Last Admin: 06/19/17 11:04 Dose: 100 mls/hr Piperacillin Sod/Tazobactam (Sod 3.375 gm/ Sodium Chloride) 100 mls @ 25 mls/ hr IVPB Q8H ABENA Last Admin: 06/20/17 06:09 Dose: 25 mls/hr Potassium Chloride (Potassium Chloride 10 Meq/50 Ml Ivpremix*) 10 meq in 50 mls @ 50 mls/hr IV Q1H [facility] Stop: 06/20/17 12:59 Last Admin: 06/20/17 09:26 Dose: 50 mls/hr Magnesium Sulfate (Magnesium Sulfate 2 Gm Iv*) 2 gm in 50 mls @ 50 mls/hr IVPB ONCE ONE Stop: 06/20/17 10:59 Ondansetron HCl (Zofran Inj*) 4 mg IV Q6H PRN PRN Reason: NAUSEA Last Admin: 06/19/17 16:41 Dose: 4 mg Oxycodone/Acetaminophen (Percocet 5/325 Tab*) 1 tab PO Q4H PRN PRN Reason: moderate pain Last Admin: 06/20/17 09:39 Dose: 1 tab Oxycodone/Acetaminophen (Percocet 5/325 Tab*) 2 tab PO Q4H PRN PRN Reason: moderately severe pain Vital Signs - 8 hr 06/20/17 06/20/17 06/20/17 03:00 03:41 03:45 Temperature Pulse Rate 67 Respiratory 12 18 16 Rate Blood Pressure 83/52 (mmHg) O2 Sat by Pulse 99 Oximetry 06/20/17 06/20/17 06/20/17 03:47 04:00 04:01 Temperature 99.1 F Pulse Rate 75 67 Respiratory 17 15 Rate Blood Pressure 91/60 (mmHg) O2 Sat by Pulse 95 95 Oximetry 06/20/17 06/20/17 06/20/17 04:42 05:00 06:00 Temperature Pulse Rate 66 67 71 Respiratory 13 14 15 Rate Blood Pressure 96/57 95/60 101/59 (mmHg) O2 Sat by Pulse 95 95 95 Oximetry 06/20/17 06/20/17 06/20/17 07:00 08:00 08:46 Temperature 99.8 F Pulse Rate 73 76 75 Respiratory 14 10 15 Rate Blood Pressure 92/64 106/64 100/63 (mmHg) O2 Sat by Pulse 95 96 94 Oximetry 06/20/17 06/20/17 09:00 09:39 Temperature Pulse Rate 73 Respiratory 14 16 Rate Blood Pressure 101/65 (mmHg) O2 Sat by Pulse 95 Oximetry Oxygen Devices in Use Now: None Appearance: 31 yo F in nAD, aAOx3 Eyes: No Scleral Icterus, PERRLA Ears/Nose/Mouth/Throat: NL Teeth, Lips, Gums, Mucous Membranes Moist Neck: NL Appearance and Movements; NL JVP, Trachea Midline Respiratory: Symmetrical Chest Expansion and Respiratory Effort, - - faint crackles at b/l bases Cardiovascular: NL Sounds; No Murmurs; No JVD, RRR Abdominal: - - mild diffuse tenderness m no rebound, no guarding, BS+ Lymphatic: No Cervical Adenopathy Extremities: No Clubbing, Cyanosis Skin: No Rash or Ulcers, No Nodules or Sclerosis, - - surgical incisions steri stripped, no dehiscence, or infection noted Neurological: Alert and Oriented x 3, NL Muscle Strength and Tone Result Diagrams: 06/19/17 21:06 06/20/17 05:28 Microbiology and Other Data: Microbiology 06/18/17 21:16 Nasal Screen MRSA (PCR)(LUIS) - Final Nasal Mrsa Negative 06/18/17 18:20 Nasal Screen MRSA (PCR)(LUIS) - Final Nasal Mrsa Negative Assess/Plan/Problems-Billing Assessment: 31 yo f with h/o HTN presents for laparoscopic cholecystectomy and suffered from post op hemorrhagic shock, [facility]d hematoma was washed out by Dr. Taylor. - Patient Problems (1) Hemorrhagic shock Comment: resuscitated with IVF. Hb no w stable, hemodynamically stable on clears by surgery (2) Anemia Comment: due to acute intraop hemorrhage H&H stable (3) DVT prophylaxis Comment: SCD's (4) Fever Comment: in POD #2, suspect atelectasis D/w Dr. Gutierrez, will stop Zosyn, monitor (5) Electrolyte abnormality Comment: reolacing hypomagnesemia and hypokalemia Status and Disposition: consult Will sign off and see pt prn Thank you for allowing us to see your pt in consultation
[2017-06-20] MEDS: Ondansetron INJ* 2 MG/ML VIAL IV PRN (20:24)
[2017-06-21 05:06] LABS: ABS Basophils 0 10^3/ul (0-0.2); ABS Eosinophils 0.3 10^3/ul (0-0.6); ABS Lymphocytes 1.5 10^3/ul (1.0-4.8); ABS Monocytes 0.5 10^3/ul (0-0.8); ABS Nucleated RBC 0 10^3/ul; Eosinophil % 4.4 % (0-6); Hematocrit 24 % (35-47); Hemoglobin 8.2 g/dl (12.0-16.0); Lymphocyte % 23.3 % (25-47); Mean Corpuscular HGB Conc 34 g/dl (31-36); Mean Corpuscular Hemoglobin 30 pg (27-31); Mean Corpuscular Volume 87 fL (80-97); Mean Platelet Volume 7 um3 (7.4-10.4); Nucleated Red Blood Cells % 0.1; Platelet Count 235 10^3/ul (150-450); Red Blood Count 2.79 10^6/ul (4.0-5.4); Red Cell Distribution Width 13 % (10.5-15); White Blood Count 6.2 10^3/ul (3.5-10.8)
[2017-06-21] MEDS: oxyCODONE/Acetamin 5/325 MG* TAB PO PRN ×2 (07:05→13:32)
[2017-06-21] MEDS: Ondansetron INJ* 2 MG/ML VIAL IV PRN (07:48)
--- NOTE | 2017-06-21 10:44 | PN ---
Progress Note - Progress Note Date of Service: 06/21/17 Note: POD#3 s/p lap coral and return to OR Now afeb. VS noted Melodie po's, voiding, + flatus Still w. nausea, using zofran. Right flank pain Abd soft tender at incisions. Mild right flank pressure. No peritonitis. H/H stable, other labs noted. C&S no growth so far. Doesn't want to go home yet. D/W nursing, will encourage and reassess later.
[2017-06-22] MEDS: oxyCODONE/Acetamin 5/325 MG* TAB PO PRN ×2 (03:00→15:13)
[2017-06-22 14:58] VITALS: BP 93/58
--- NOTE | 2017-06-23 04:21 | DS ---
CC: Dr. Stoddard at [facility] * DISCHARGE SUMMARY: DATE OF ADMISSION: 06/18/17 DATE OF DISCHARGE: 06/22/17 ATTENDING SURGEON: Linda Taylor MD * (DICTATED BY GERARD NARANJO) HOSPITAL COURSE: Please refer to admission history and physical and detailed operative notes from 06/18/17. Briefly, the patient was taken to the operating room on 06/18/17, at which time she underwent laparoscopic cholecystectomy. She was found to have significant abdominal and flank pain as well as hypotension in the PACU. She was consulted by the hospitalist and labs were sent. It was felt by Dr. Taylor that her condition necessitated a second look operation and therefore she was taken back to the operating room for hemodynamic instability. Findings at the time of the second surgery included significant intraabdominal blood and hematoma, but without an apparent active bleeding source. Blood was irrigated and evacuated and patient observed for any sign of additional bleeding, but was found to have none. She did drop her hemoglobin to 8 from a baseline of 12.8 and that has remained relatively stable since then, the most recent being 8.2. She did not require transfusion. Postoperatively, she continued to have significant pain and/or nausea. She has also had a fever at one point. As of the day of discharge, she was afebrile with a temperature of 97.7, blood pressure of 98/66, pulse 67, respirations 16, and room air saturation 99%. Her laparoscopic incision sites were healing well without evidence of infection. Her pain was well controlled with oral medications. She was still receiving some Zofran, therefore prescription will be sent electronically for Zofran 4 mg ODT every 6 hours p.r.n. A prescription was also sent for Percocet p.r.n. ([facility] registry checked). She has return appointment in the office for 06/25/17. GERARD NARANJO [id number]/[facility] #: [id number] MTDD
== END 2017-06-22 15:25 | disposition home or self-care (01) | DRG 263 ==
LOC: OR 07:52 → ICU 13:11 → SSU 06-20 12:53 → OBSVTOIN 06-20 13:11
PROVIDERS: ADMIT Surgery; ATTEND Surgery
PROC: 0FT44ZZ Resection of Gallbladder, Percutaneous Endoscopic Approach (ICD-10-PCS; 2017-06-18)
PROC: 0DC84ZZ Extirpation of Matter from Small Intestine, Percutaneous Endoscopic Approach (ICD-10-PCS; principal; 2017-06-18 09:15)
DX: K82.4 Cholesterolosis of gallbladder (principal); T81.19XA Other postprocedural shock, initial encounter; I95.9 Hypotension, unspecified; D62 Acute posthemorrhagic anemia; F51.04 Psychophysiologic insomnia; G43.909 Migraine, unspecified, not intractable, without status migrainosus; J30.2 Other seasonal allergic rhinitis; R11.0 Nausea; Y83.8 Other surgical procedures as the cause of abnormal reaction of the patient, or of later complication, without mention of misadventure at the time of the procedure; Y92.234 Operating room of hospital as the place of occurrence of the external cause; R50.9 Fever, unspecified; R00.1 Bradycardia, unspecified; Z82.3 Family history of stroke
CPT/HCPCS: 36415; 71010; 80048; 80053; 81025; 83605; 83735; 85014; 85018; 85025; 85027; 85610; 85730; 86850; 86900; 86901; 87040; 87641; 88304; A9270-GY; G0378; J0330; J0690; J1100; J1170; J1885; J2250; J2310; J2405; J2543; J2704; J3010; J3475; J3480; J7614